=== PATIENT | female | born 1940 | race Caucasian/White ===

== ENCOUNTER → 2016-07-28 07:09 | Day surgery (SDC) | payer MEDICARE, BC ==
[~2016-07-28] VITALS: Ht 203.2 cm; Wt 64.4 kg
[~2016-07-28 07:09] MED LIST: ASPIRIN EC81 M1 PO; CATAPRES0.1 MG PO; CELEXA20 MG PO; PEPCID AC20 MG PO; PRAVACHOL40 MG PO; PRINIVIL20 MG PO; PROLIA INJ 660 MG/M1 IJ; SYNTHROID112 MCG PO; TENORMIN25 MG PO; VITAMIN D250000 UNIT PO; XANAX0.5 MG PO; ZESTORETIC 20-1 EACH PO
[2016-07-28 08:03] LABS: HEMATOCRIT 48.4 % (36.0-48.0); HEMOGLOBIN 16.6 g/dL (12-16); MCH 32.4 pg (26.0-34.0); MCHC 34.3 g/dL (31.0-37.0); MCV 94.3 fL (80.0-100.0); MEAN PLATELET VOLUME 8.9 fL (7.4-10.4); RBC 5.13 10x6/uL (4.00-5.40); RDW 14.6 % (11.5-14.5); WBC 6.8 10x3/uL (4.8-10.8)
[2016-07-28 08:41] LABS: CALC OSMOLALITY 261 mosm/kg (275-300); CALCIUM 8.9 mg/dL (8.5-10.1); CARBON DIOXIDE 30.1 mmol/L (21.0-32.0); CHLORIDE - SERUM 96 mmol/L (98-107); CREATININE - SERUM 0.7 mg/dL (0.6-1.3); GLUCOSE 87 mg/dL (74-106); POTASSIUM - SERUM 3.2 mmol/L (3.5-5.1); SODIUM 132 mmol/L (136-145); UREA NITROGEN 7 mg/dL (7-18); eGFR NON AFRICAN AMERICAN 86 mL/min (90-120)
[2016-07-28 09:13] VITALS: BP 109/53; Ht 203.2 cm; Wt 64.4 kg
--- NOTE | 2016-07-28 10:45 | NUR ---
NO COUNTS OR PREP R/T COLONOSCOPY PROCEDURE
--- NOTE | 2016-07-28 11:15 | NUR ---
GUERO PAD X2 RIGHT THIGH, [id number] EXP05/04/18
--- NOTE | 2016-07-28 12:52 | NUR ---
1245-RECD TO ROOM FROM PACU. ALERT. RESP WITH EASE, COUGHS AT INTERVALS. O2 ON AT 3L PER NC. IV PATENT. TAKING ICE CHIPS.
--- NOTE | 2016-07-28 15:03 | NUR ---
1330-O2 D/C, IV D/C. UP TO BATHROOM TO DRESS. 1345-DISCHARGE INSTRUCTIONS REVIEWED AND D/C VIA WC TO PRIVATE AUTO WITH SPOUSE.
--- NOTE | 2016-08-13 09:40 | OP ---
PATIENT NAME: CARA MCDONOUGH MEDICAL RECORD: [id number] :38 LOCATION:D.OPS ADMISSION DATE: SURGEON: RAPHAEL FLORES MD DATE OF OPERATION: 07/28/2016 PREOPERATIVE DIAGNOSES: History of complex polyps of the hepatic flexure and the cecum, which have been tattooed previously. POSTOPERATIVE DIAGNOSES: 1. Two sites of regrowth of the cecal polypoid tissue at the margins of the tattoo scar. 2. Some regrowth of polypoid tissue in the center of the scar at the hepatic flexure. 3. A new 9 mm scar on a fold. PROCEDURES: 1. Total colonoscopy to the cecum. 2. Polypectomy of the hepatic flexure polyp utilizing the argon plasma fill technician, which is a radiofrequency type of ablation of benign colonic process. 3. Hot biopsy forceps polypectomies times 2. SURGEON: Raphael Flores MD. AEROSPACE ENGINEER: None. BLOOD LOSS: Minimal. ANESTHESIA: General. COMPLICATIONS: None. The risks, possible complications and alternatives to procedure were explained to the patient. She elects to proceed. OPERATIVE COURSE: The patient was conveyed to the operating room electively on 07/28/2016. General anesthesia was induced by anesthesia staff. The patient was placed in the Garnett position. A digital rectal examination was performed. I entered the colonoscope. I noted the anastomosis, which appeared intact and without any polypoid tissue and no evidence of any glandular or neoplastic tissue. I then continued to advance the endoscope. Moderate sigmoid diverticulosis was noted. I advanced the cecum easily. The prep was adequate. I slowly withdrew the endoscope. The cecal polyps were treated each area was treated with the hot biopsy forceps polypectomy technique. I then treated the hepatic flexure polyp by biopsy and then treating it with the argon plasma fill technician utilizing the right colon setting in the pulse mode. I then continued to withdraw the endoscope. Another polyp was removed in its entirety utilizing the hot biopsy forceps polypectomy technique. I then withdrew into the rectum. I then withdrew the endoscope. I will see the patient in my office in 2-3 weeks. I will plan for her next colonoscopy with the argon plasma fill technician to take place in 1 year. TRANSINT:[id number] Voice Confirmation ID: [id number] DOCUMENT ID: [id number] OPERATIVE REPORT [id number] DEMSKCARA Gonsalves, RAPHAEL SEN at 0940 CC: MARZENA MART MD, KATIE LIZARRAGA MD and TROY NATHAN [id number] DICTATION DATE: 07/28/16 1233 ENVIRONMENTAL AIDE: 07/28/162009 [facility] 07/28/[address] [facility] [address] [place] [address]
--- NOTE | 2016-08-13 09:40 | HP ---
PATIENT: CARA MCDONOUGH MEDICAL RECORD: [id number] ACCOUNT: [id number] LOCATION:ABDIRAHMAN : 36 ADMISSION DATE: 07/28/16 HISTORY AND PHYSICAL EXAMINATION CHIEF COMPLAINT: Complex colon polyps. HISTORY OF PRESENT ILLNESS: The patient has a history of complex colon polyps of the hepatic flexure of the cecum. They are complex due to their size and location. The risks, possible complications and alternatives to polypectomy utilizing argon plasma plate stacker were explained to the patient. She elects to proceed. PAST MEDICAL AND SURGICAL HISTORY: Hysterectomy, history of bowel resection, history section, history of colon polyps, history of dyspnea, hypothyroidism, on replacement therapy, depression, history of gastritis, history of colon carcinoma, colon carcinoma with resection by Dr. Silveira, history of arthritis of a finger, hypertension. SOCIAL HISTORY: She is a smoker, I advised her to quit smoking. ALLERGIES: PENICILLIN. MEDICATIONS: Low dose aspirin, atenolol, famotidine, Synthroid, pravastatin, lisinopril/hydrochlorothiazide. REVIEW OF SYSTEMS: Negative for CVA or seizures. Negative for diabetes or hepatitis. PHYSICAL EXAMINATION: GENERAL: The patient does not appear acutely ill. She does not appear chronically ill. The entire physical examination was performed in the presence of a female nurse. HEAD: External ears appear normal. EYES: Extraocular movements are intact. NECK: Trachea is midline. CHEST: No intercostal retractions. PULMONARY: Nonlabored, no stridor. ABDOMEN: Nontender. IMPRESSION: History of complex colon polyps. PLAN: We will be colonoscopy with polypectomy utilizing the argon plasma plate stacker, which is a radiofrequency type of ablation of a benign colonic process. TRANSINT:[id number] Voice Confirmation ID: [id number] DOCUMENT ID: [id number] HISTORY AND PHYSICAL [id number] CARA MCDONOUGH RAPHAEL FLORES MD at 0940 CC: KATIE LIZARRAGA MD and TROY NATHAN MD [id number] DICTATION DATE: 07/28/16 1040 BOILERMAKER FITTER: 07/28/16 1155 [facility] 07/28/16 [facility] [address] [place] [address]
== END | disposition home or self-care (01) ==
LOC: D.OPS 07:09 → D.PAN 09:00 → D.OPS 09:15 → D.PAN 09:45
PROVIDERS: Anesthesiology
DX: D12.0 Benign neoplasm of cecum (principal); D12.3 Benign neoplasm of transverse colon; Z86.010 Personal history of colon polyps; E03.9 Hypothyroidism, unspecified; I10 Essential (primary) hypertension; F32.9 Major depressive disorder, single episode, unspecified; Z85.038 Personal history of other malignant neoplasm of large intestine; F17.200 Nicotine dependence, unspecified, uncomplicated; Z79.82 Long term (current) use of aspirin; Z79.899 Other long term (current) drug therapy; Z88.0 Allergy status to penicillin

== ENCOUNTER 2017-09-08 07:21 | Day surgery (SDC) | payer MEDICARE, BC ==
[~2017-09-08] VITALS: Ht 157.5 cm; Wt 65.3 kg
--- NOTE | ~2017-09-08 | OP ---
PATIENT NAME: CARA MCDONOUGH MEDICAL RECORD: [id number] :36 LOCATION:D.OPS ADMISSION DATE: SURGEON: RAPHAEL FLORES MD DATE OF OPERATION: 09/08/2017 PREOPERATIVE DIAGNOSES: History of cecal tubular adenoma as well as a colon polyp at 70 cm, which was also a tubular adenoma. POSTOPERATIVE DIAGNOSES: History of cecal tubular adenoma as well as a colon polyp at 70 cm, which was also a tubular adenoma without evidence of regrowth of either polyp. PROCEDURES: 1. Total colonoscopy to cecum. 2. Biopsies of the scar at 70 cm with retreatment utilizing the argon plasma forming mill operator. SURGEON: Raphael Flores MD SPECIAL MAKEUP FX ARTIST INSTRUCTOR: None. BLOOD LOSS: Minimal. ANESTHESIA: General. COMPLICATIONS: None. The risks, possible complications, and alternatives to the procedure were explained to the patient. She elects to proceed. OPERATIVE COURSE: The patient was conveyed to the operating room electively on 09/08/2017. General anesthesia was induced by the anesthesia staff. The patient was placed in the Garnett position. A digital rectal examination was performed. A colonoscope was inserted through the anus. It was easily advanced to the cecum. The prep was poor. I slowly withdrew the endoscope. I dragged the folds. I irrigated and aspirated extensively. The pullback was greater than a 20-minute pullback. I identified no residual or recurrent cecal polyp. I did identify a scar next to a tattoo in the transverse colon. This was biopsied utilizing the cold endoscopic biopsy forceps and then I ablated the tissue with the argon plasma forming mill operator. The scope was then slowly withdrawn. I utilized normal imaging as well as narrow band imaging. A retroflexed view was obtained in the rectum. I then unretroflexed the scope and removed it under direct vision. I will see the patient in my office in 2-3 weeks. It is very likely that I will return the patient's endoscopic care back over to Dr. Starr at that time. TRANSINT:[id number] Voice Confirmation ID: [id number] DOCUMENT ID: [id number] OPERATIVE REPORT [id number] CARA MCDONOUGH RAPHAEL FLORES MD at 1741 CC: KATIE STARR and TROY NATHAN MD [id number] DICTATION DATE: 09/08/17 1257 PRODUCTION STATISTICAL CLERK: 09/08/17 1346 [facility] 09/08/17 [place] [id number] [place] [id number]
[2017-09-08 08:35] VITALS: BP 105/53; Ht 157.5 cm; Wt 65.3 kg
[2017-09-08 08:49] LABS: HEMATOCRIT 45.4 % (36.0-48.0); MCH 32.5 pg (26.0-34.0); MCHC 35.2 g/dL (31.0-37.0); MCV 92.3 fL (80.0-100.0); MEAN PLATELET VOLUME 8.7 fL (7.4-10.4); RBC 4.92 10x6/uL (4.00-5.40); RDW 14.6 % (11.5-14.5); WBC 5.8 10x3/uL (4.8-10.8)
[2017-09-08 09:03] LABS: CALC OSMOLALITY 270 mosm/kg (275-300); CALCIUM 8.8 mg/dL (8.5-10.1); CARBON DIOXIDE 27.1 mmol/L (21.0-32.0); CHLORIDE - SERUM 96 mmol/L (98-107); CREATININE - SERUM 0.6 mg/dL (0.6-1.3); GLUCOSE 92 mg/dL (74-106); POTASSIUM - SERUM 3.1 mmol/L (3.5-5.1); SODIUM 136 mmol/L (136-145); UREA NITROGEN 9 mg/dL (7-18); eGFR NON AFRICAN AMERICAN > 90 mL/min (90-120)
== END 2017-09-08 14:54 | disposition home or self-care (01) ==
LOC: D.OPS 07:21 → D.PAN 10:00 → D.OPS 10:00
PROVIDERS: Anesthesiology
DX: K52.9 Noninfective gastroenteritis and colitis, unspecified (principal); Z01.812 Encounter for preprocedural laboratory examination; Z86.010 Personal history of colon polyps

== ENCOUNTER 2018-02-18 09:06 | Inpatient (IN) | payer MEDICARE, BC ==
[~2018-02-18] VITALS: Ht 157.5 cm; Wt 72.3 kg
--- NOTE | ~2018-02-18 | MORECARE ---
CASE MANAGEMENT DISCHARGE SUMMARY PATIENT: CARA MCDONOUGH UNIT: [id number] ADM DATE: 02/18/18 AGE: 77 : 38 SEX: F ROOM/BED: D.2301 AUTHOR: SHAHNAZ,DOC PHYSICIAN: REFERRING PHYSICIAN: ERI LIMON MD DATE OF SERVICE: 02/24/18 Discharge Plan Patient Name: CARA MCDONOUGH Facility: [facility]:[place] : 1940 Planned Disposition: Home Anticipated Discharge Date: Discharge Date: 02/24/2018 Expected LOS: Initial Reviewer: [id number] Initial Review Date: 02/18/2018 Generated: 02/24/18 8:41 pm Comments DCP- Discharge Planning Updated by [email or web address]: Myla Mcclure on 02/24/18 6:[address] CM notified this am that patient was needing Home 02 and will be discharged today. Walk test completed and records faxed to [facility]. DME will bring [address] Leung stated that patient doesn't need Home Health services at this time. Patient will be followed by House calls upon discharge. CM will continue to follow and assist with discharge planning / needs. Appended by Myla Mcclure on 02/24/2018 19:37 CDT: IMM EXPALINED AND SERVED @1235 DCP- Discharge Planning Updated by [email or web address]: Myla Mcclure on 02/23/18 3:[address] CM received order for planned disposition. CM met with patient she is refusing inpatient rehab. Patient will agree to Home Health upon discharge. MARSHA signed for [facility]. CM called [facility] to check for availability. CM left message for Anna Worrell. CM awaiting response from agency. CM will continue to follow and assist as needed with discharge planning / needs. DCP- Discharge Planning Updated by [email or web address]: Shima Mccord on 02/21/18 1:[address] Patient Name: CARA MCDONOUGH Admission Status: ER Accout number: [id number] Admission Date: 02-18-2018 : 1940 Admission Diagnosis:OTHER AND UNSP VENTRAL HERNIA WITH OBSTRUCTION, W/O ZITA Attending: ERI LIMON Current LOS: 3 Anticipated DC Date: Planned Disposition: Home Primary Insurance: MEDICARE A & B Discharge Planning Comments: CM met with patient to assess discharge planning needs. Patient stated that she is independent with her care at home. Her will be the one to drive her home. She has a cane, walker, shower chair, and nebulizer at home. She denies any needs, but is open to home health if needed. There are 2 steps in her home. CM will continue to follow and assist with dc planning. Bulk Tank Car Unloader: Shima Mccord DCPIA - Discharge Planning Initial Assessment Updated by [email or web address]: Shima Mccord on 02/21/18 2:27 pm * Is the patient Alert and Oriented? Yes * How many steps to enter\exit or inside your home? * PCP [facility] * Pharmacy [facility] * Preadmission Environment Home with Family * ADLs Independent * Equipment Cane Nebulizer Rolling Walker Shower Chair * List name and contact numbers for known caregivers / representatives who currently or will assist patient after discharge: ALEX (SPOUSE) [phone] * Verbal permission to speak to the caregivers and representatives has been obtained from the patient. N/A * Community resources currently utilized None * Additional services required to return to the preadmission environment? No * Can the patient safely return to the preadmission environment? Yes * Has this patient been hospitalized within the prior 30 days at any hospital? No Coverage Notice Reviewer: [email or web address] - Myla Mcclure Notice Issued Date-Time: 02/24/2018 12:35 Notice Type: IM Discharge Notice Notice Delivered To: Patient Relationship to Patient: Self Combination Building Inspector Name: Delivery Method: HAND - Hand Delivered Imani Days: Prior Verbal Notification: Recipient Understood Notice: Yes Recipient Signature: Yes Med Rec Note Co-signed by Attending: Coverage Notice Comment: Last DP export: 02/24/18 12:46 Patient Name: CARA MCDONOUGH Page 54093 at 1941 All edits/amendments must be made on the electronic document DICTATION DATE: 02/24/181939 WIREWORKER: CALLIE 02/24/181939 RPT#: [id number] DC DATE:02/24/18 STATUS: DIS IN [facility] [address] [place] [address] END OF REPORT
--- NOTE | ~2018-02-18 | MORECARE ---
CASE MANAGEMENT DISCHARGE SUMMARY PATIENT: CARA MCDONOUGH UNIT: [id number] ADM DATE: 02/18/18 AGE: 77 : 38 SEX: F ROOM/BED: D.2301 AUTHOR: BRANDIE CHRISTIE PHYSICIAN: REFERRING PHYSICIAN: ERI LIMON MD DATE OF SERVICE: 02/24/18 Discharge Plan Patient Name: CARA MCDONOUGH Facility: [facility]:[place] : 1940 Planned Disposition: Home Anticipated Discharge Date: Discharge Date: Expected LOS: Initial Reviewer: [email or web address] Initial Review Date: 02/18/2018 Generated: 02/24/18 2:30 pm Comments DCP- Discharge Planning Updated by [email or web address]: Myla Mcclure on 02/23/18 3:[address] CM received order for planned disposition. CM met with patient she is refusing inpatient rehab. Patient will agree to Home Health upon discharge. MARSHA signed for [facility]. CM called [facility] to check for availability. CM left message for Anna Worrell. CM awaiting response from agency. CM will continue to follow and assist as needed with discharge planning / needs. DCP- Discharge Planning Updated by [email or web address]: Shima Mccord on 02/21/18 1:[address] Patient Name: CARA MCDONOUGH Admission Status: ER Accout number: [id number] Admission Date: 02-18-2018 : 1940 Admission Diagnosis:OTHER AND UNSP VENTRAL HERNIA WITH OBSTRUCTION, W/O ZITA Attending: ERI LIMON Current LOS: 3 Anticipated DC Date: Planned Disposition: Home Primary Insurance: MEDICARE A & B Discharge Planning Comments: CM met with patient to assess discharge planning needs. Patient stated that she is independent with her care at home. Her will be the one to drive her home. She has a cane, walker, shower chair, and nebulizer at home. She denies any needs, but is open to home health if needed. There are 2 steps in her home. CM will continue to follow and assist with dc planning. Junior Loan Processor: Shima Mccord DCPIA - Discharge Planning Initial Assessment Updated by [email or web address]: Shima Mccord on 02/21/18 2:27 pm * Is the patient Alert and Oriented? Yes * How many steps to enter\exit or inside your home? * PCP [facility] * Pharmacy [facility] * Preadmission Environment Home with Family * ADLs Independent * Equipment Cane Nebulizer Rolling Walker Shower Chair * List name and contact numbers for known caregivers / representatives who currently or will assist patient after discharge: ALEX (SPOUSE) [phone] * Verbal permission to speak to the caregivers and representatives has been obtained from the patient. N/A * Community resources currently utilized None * Additional services required to return to the preadmission environment? No * Can the patient safely return to the preadmission environment? Yes * Has this patient been hospitalized within the prior 30 days at any hospital? No External Providers External Provider: OTHER-OTHER Next Contact Date: Service Request Date: Service Type: Resolution: Reviewer: Comments: Last DP export: 02/23/18 3:48 Patient Name: CARA MCDONOUGH Page [id number] at 1330 All edits/amendments must be made on the electronic document DICTATION DATE: 02/24/18 132 SOFT WATER MECHANIC: CALLIE 02/24/18 1329 RPT#: [id number] DC DATE: STATUS: ADM IN [facility] [address] [place] [address] END OF REPORT
--- NOTE | ~2018-02-18 | MORECARE ---
CASE MANAGEMENT DISCHARGE SUMMARY PATIENT: CARA MCDONOUGH UNIT: [id number] ADM DATE: 02/18/18 AGE: 77 : 38 SEX: F ROOM/BED: D.2301 AUTHOR: BRANDIE CHRISTIE PHYSICIAN: REFERRING PHYSICIAN: ERI LIMON MD DATE OF SERVICE: 02/24/18 Discharge Plan Patient Name: CARA MCDONOUGH Facility: [facility]:[place] : 1940 Planned Disposition: Home Anticipated Discharge Date: Discharge Date: Expected LOS: Initial Reviewer: [email or web address] Initial Review Date: 02/18/2018 Generated: 02/24/18 2:45 pm Comments DCP- Discharge Planning Updated by [email or web address]: Myla Mcclure on 02/24/18 12:[address] CM notified this am that patient was needing Home 02 and will be discharged today. Walk test completed and records faxed to [facility]. DME will bring [address] Leung stated that patient doesn't need Home Health services at this time. Patient will be followed by House calls upon discharge. CM will continue to follow and assist with discharge planning / needs. DCP- Discharge Planning Updated by [email or web address]: Myla Mcclure on 02/23/18 3:[address] CM received order for planned disposition. CM met with patient she is refusing inpatient rehab. Patient will agree to Home Health upon discharge. MARSHA signed for [facility]. CM called [facility] to check for availability. CM left message for Anna Worrell. CM awaiting response from agency. CM will continue to follow and assist as needed with discharge planning / needs. DCP- Discharge Planning Updated by [email or web address]: Shima Mccord on 02/21/18 1:[address] Patient Name: CARA MCDONOUGH Admission Status: ER Accout number: [id number] Admission Date: 02-18-2018 : 1940 Admission Diagnosis:OTHER AND UNSP VENTRAL HERNIA WITH OBSTRUCTION, W/O ZITA Attending: ERI LIMON Current LOS: 3 Anticipated DC Date: Planned Disposition: Home Primary Insurance: MEDICARE A & B Discharge Planning Comments: CM met with patient to assess discharge planning needs. Patient stated that she is independent with her care at home. Her will be the one to drive her home. She has a cane, walker, shower chair, and nebulizer at home. She denies any needs, but is open to home health if needed. There are 2 steps in her home. CM will continue to follow and assist with dc planning. Lining Mechanic: Shima Mccord DCPIA - Discharge Planning Initial Assessment Updated by [email or web address]: Shima Mccord on 02/21/18 2:27 pm * Is the patient Alert and Oriented? Yes * How many steps to enter\exit or inside your home? * PCP [facility] * [facility]acy [facility] * Preadmission Environment Home with Family * ADLs Independent * Equipment Cane Nebulizer Rolling Walker Shower Chair * List name and contact numbers for known caregivers / representatives who currently or will assist patient after discharge: ALEX (SPOUSE) [phone] * Verbal permission to speak to the caregivers and representatives has been obtained from the patient. N/A * Community resources currently utilized None * Additional services required to return to the preadmission environment? No * Can the patient safely return to the preadmission environment? Yes * Has this patient been hospitalized within the prior 30 days at any hospital? No Last DP export: 02/24/18 12:30 Patient Name: CARA MCDONOUGH Page 59190 at 1346 All edits/amendments must be made on the electronic document DICTATION DATE: 02/24/181344 RETAIL MANAGEMENT TRAINEE: CALLIE 02/24/181344 RPT#: [id number] DC DATE: STATUS: ADM IN [facility] [address] [place] [address] END OF REPORT
--- NOTE | ~2018-02-18 | OP ---
PATIENT NAME: CARA MCDONOUGH MEDICAL RECORD: [id number] :36 LOCATION:[facility] D.2301 ADMISSION DATE:02/18/18 SURGEON: DASIA GUZMAN MD DATE OF OPERATION: 02/22/2018 SURGEON: Dasia Guzman MD PREOPERATIVE DIAGNOSES: 1. Incarcerated incisional hernia. 2. Small-bowel obstruction. 3. Significant intra-abdominal adhesions. POSTOPERATIVE DIAGNOSES: 1. Incarcerated incisional hernia. 2. Small-bowel obstruction. 3. Significant intra-abdominal adhesions. PROCEDURES PERFORMED: Laparoscopic lysis of adhesions, laparoscopic reduction of incarcerated incisional hernia, Laparoscopic incarcerated incisional hernia repair with mesh. ANESTHESIA: General. COMPLICATIONS: None. SPECIMENS: None. Case was clean. ESTIMATED BLOOD LOSS: 50 cc. OPERATIVE COURSE: After consent was obtained, the patient was taken to the operating room and placed in the supine position on the operating table. Next, general anesthesia was given. A timeout was then taken to confirm the correct patient and procedure. The abdomen was prepped and draped in typical sterile fashion and Ioban dressing was placed. Local anesthetic was used in the left upper quadrant at Griffin's point. A stab incision was made with 11-blade scalpel. Using a 5-mm bladeless optical trocar, the abdomen was entered under direct laparoscopic vision. Adequate pneumoperitoneum was achieved. The abdominal cavity was inspected. No evidence of bowel injury. No evidence of bleeding. There were loops of bowel densely adherent to the anterior abdominal wall with a loop of small bowel protruding through the incisional hernia defect from the patient's previous low anterior resection. The patient had a lower midline abdominal incision with incarcerated hernia that corresponded to CT findings on admission with a loop of small bowel within the incarcerated hernia. At this time, two additional trocars were placed, an 11-mm trocar in the left lateral quadrant, 5-mm trocar into the left lower quadrant under direct laparoscopic vision. At this time, extensive and meticulous lysis of adhesion was performed using sharp scissor dissection. The bowel was gently retracted and adhesions were sharply dissected off the anterior abdominal wall until all the small bowel was freed from the anterior abdominal wall. The hernia was reduced. At this time, the abdomen was copiously OPERATIVE REPORT [id number] CARA MCDONOUGH irrigated and suctioned. The small bowel was run from the ligament of Treitz to the terminal ileum performing small bowel laparoscopic lysis of adhesions. This was repeated a second time again with copious abdominal washout and irrigation. There was fluid noted be running distal to the area of earlier bowel obstruction. There was some erythematous serosa but no serosal defects were noted. There was no perforation of the bowel noted. At this time we started to perform hernia repair. A 4-1/[address] mesh was placed into the abdomen using a Matt-Uday, the Echo position system was used to position the mesh from the anterior abdominal wall across the defect with a minimum of 5 cm overlap in all directions. The mesh was secured to the abdominal wall using the OptiFix tacker. Again, at this time, the abdomen was copiously irrigated and suctioned. There was no evidence of bowel injury. No evidence of succuss. Small bowel again was run from ligament of Treitz to terminal ileum with no bowel injuries identified. A RANI drain was placed into the pelvis through the left lower quadrant trocar. At this time, all remaining instruments were removed. The abdomen was desufflated. Skin incisions were closed with 4-0 Monocryl, Mastisol, and Steri-Strips. The RANI drain was secured in place with a 3-0 nylon suture. At the end of the case, all needle and instrument counts were correct. No complications occurred. The patient was extubated and transferred to the PACU in stable condition. TRANSINT:[id number] Voice Confirmation ID: [id number] DOCUMENT ID: [id number] DASIA GUZMAN MD at 0829 CC: [id number] DICTATION DATE: 02/22/182000 PHARMACOLOGY ASSOCIATE: 02/22/182114 ADM IN [facility] [address] [place] [address]
--- NOTE | ~2018-02-18 | MORECARE ---
CASE MANAGEMENT DISCHARGE SUMMARY PATIENT: CARA MCDONOUGH UNIT: [id number] ADM DATE: 02/18/18 AGE: 77 : 36 SEX: F ROOM/BED: D.2301 AUTHOR: SHAHNAZ,DOC PHYSICIAN: REFERRING PHYSICIAN: ERI LIMON MD DATE OF SERVICE: 02/27/18 Discharge Plan Patient Name: CARA MCDONOUGH Facility: [facility]:[place] : 1940 Planned Disposition: Home Anticipated Discharge Date: Discharge Date: 02/24/2018 Expected LOS: Initial Reviewer: [email or web address] Initial Review Date: 02/18/2018 Generated: 02/27/18 10:21 am Comments DCP- Discharge Planning Updated by [email or web address]: Myla Mcclure on 02/24/18 6:[address] CM notified this am that patient was needing Home 02 and will be discharged today. Walk test completed and records faxed to [facility]. DME will bring [address] Leung stated that patient doesn't need Home Health services at this time. Patient will be followed by House calls upon discharge. CM will continue to follow and assist with discharge planning / needs. Appended by Myla Mcclure on 02/24/2018 19:37 CDT: IMM EXPALINED AND SERVED @1235 DCP- Discharge Planning Updated by [email or web address]: Myla Mcclure on 02/23/18 3:[address] CM received order for planned disposition. CM met with patient she is refusing inpatient rehab. Patient will agree to Home Health upon discharge. MARSHA signed for [facility]. CM called [facility] to check for availability. CM left message for Anna Worrell. CM awaiting response from agency. CM will continue to follow and assist as needed with discharge planning / needs. DCP- Discharge Planning Updated by [email or web address]: Shima Mccord on 02/21/18 1:[address] Patient Name: CARA MCDONOUGH Admission Status: ER Accout number: [id number] Admission Date: 02-18-2018 : 1940 Admission Diagnosis:OTHER AND UNSP VENTRAL HERNIA WITH OBSTRUCTION, W/O ZITA Attending: ERI LIMON Current LOS: 3 Anticipated DC Date: Planned Disposition: Home Primary Insurance: MEDICARE A & B Discharge Planning Comments: CM met with patient to assess discharge planning needs. Patient stated that she is independent with her care at home. Her will be the one to drive her home. She has a cane, walker, shower chair, and nebulizer at home. She denies any needs, but is open to home health if needed. There are 2 steps in her home. CM will continue to follow and assist with dc planning. Teacher Industrial [employer]: Shima Mccord DCPIA - Discharge Planning Initial Assessment Updated by [email or web address]: Shima Mccord on 02/21/18 2:27 pm * Is the patient Alert and Oriented? Yes * How many steps to enter\exit or inside your home? * PCP [facility] * Pharmacy [facility] * Preadmission Environment Home with Family * ADLs Independent * Equipment Cane Nebulizer Rolling Walker Shower Chair * List name and contact numbers for known caregivers / representatives who currently or will assist patient after discharge: ALEX (SPOUSE) [phone] * Verbal permission to speak to the caregivers and representatives has been obtained from the patient. N/A * Community resources currently utilized None * Additional services required to return to the preadmission environment? No * Can the patient safely return to the preadmission environment? Yes * Has this patient been hospitalized within the prior 30 days at any hospital? No Coverage Notice Reviewer: [id number] - Myla Mcclure Notice Issued Date-Time: 02/24/2018 12:35 Notice Type: IM Discharge Notice Notice Delivered To: Patient Relationship to Patient: Self Service Desk Technician Name: Delivery Method: HAND - Hand Delivered Imani Days: Prior Verbal Notification: Recipient Understood Notice: Yes Recipient Signature: Yes Med Rec Note Co-signed by Attending: Coverage Notice Comment: Last DP export: 02/24/18 6:41 Patient Name: CARA MCDONOUGH Page [id number] at 0921 All edits/amendments must be made on the electronic document DICTATION DATE: 02/27/18920 [employer] AGENT: CALLIE 02/27/18920 RPT#: [id number] DC DATE:02/24/18 STATUS: DIS IN [facility] [address] [place] [address] END OF REPORT
[2018-02-18 09:58] LABS: BASOPHILS 0.1 % (0-2); EOSINOPHILS 0.1 % (0-7); HEMATOCRIT 45.7 % (36.0-48.0); HEMOGLOBIN 16.4 g/dL (12-16); IMMATURE GRANULOCYTES 0.5 % (0-5); LYMPHOCYTES 6.9 % (15-50); MCH 33.2 pg (26.0-34.0); MCHC 35.9 g/dL (31.0-37.0); MCV 92.5 fL (80.0-100.0); MEAN PLATELET VOLUME 8.7 fL (7.4-10.4); MONOCYTES 3.2 % (2-11); NEUTROPHILS 89.2 % (40-80); PLATELET COUNT 296 10x3/uL (130-400); RBC 4.94 10x6/uL (4.00-5.40); WBC 14.6 10x3/uL (4.8-10.8)
[2018-02-18 10:46] LABS: ALBUMIN 3.1 g/dL (3.4-5.0); ALKALINE PHOSPHATASE 43 U/L (46-116); ALT (SGPT) 11 U/L (10-68); BILIRUBIN - TOTAL 0.61 mg/dL (0.2-1.3); CALC OSMOLALITY 264 mosm/kg (275-300); CALCIUM 7.8 mg/dL (8.5-10.1); CHLORIDE - SERUM 96 mmol/L (98-107); CREATININE - SERUM 0.7 mg/dL (0.6-1.3); GLUCOSE 102 mg/dL (74-106); LIPASE 76 U/L (73-393); POTASSIUM - SERUM 2.9 mmol/L (3.5-5.1); PROTEIN - SERUM 6.1 g/dL (6.4-8.2); SODIUM 133 mmol/L (136-145); UREA NITROGEN 10 mg/dL (7-18); eGFR NON AFRICAN AMERICAN 85 mL/min (90-120)
[2018-02-18 12:19] LABS: APPEARANCE CLEAR (CLEAR); BILIRUBIN NEGATIVE (NEGATIVE); COLOR YELLOW (YELLOW); GLUCOSE NEGATIVE (NEGATIVE); KETONE NEGATIVE (NEGATIVE); NITRITE NEGATIVE (NEGATIVE); PROTEIN NEGATIVE (NEGATIVE); RED CELLS - URINE RARE /hpf (0-5); UROBILINOGEN NORMAL (NORMAL); WHITE CELLS - URINE RARE /hpf (0-5)
[2018-02-18 12:20] LABS: EPITHELIAL CELLS OCC /hpf (0-5)
[2018-02-18 13:11] VITALS: BP 102/48
[2018-02-18 14:13] VITALS: BP 120/46
[2018-02-18 18:35] VITALS: BMI 28.7
[2018-02-18 19:58] VITALS: BP 107/59
[2018-02-19 04:00] VITALS: BP 120/52
[2018-02-19 05:47] LABS: ALBUMIN 2.7 g/dL (3.4-5.0); ALKALINE PHOSPHATASE 39 U/L (46-116); BILIRUBIN - TOTAL 0.76 mg/dL (0.2-1.3); CALC OSMOLALITY 270 mosm/kg (275-300); CALCIUM 7.8 mg/dL (8.5-10.1); CARBON DIOXIDE 31.9 mmol/L (21.0-32.0); CHLORIDE - SERUM 99 mmol/L (98-107); CREATININE - SERUM 0.7 mg/dL (0.6-1.3); GLUCOSE 95 mg/dL (74-106); MAGNESIUM - SERUM 1.5 mg/dL (1.8-2.4); PROTEIN - SERUM 5.7 g/dL (6.4-8.2); SODIUM 136 mmol/L (136-145); UREA NITROGEN 9 mg/dL (7-18); eGFR NON AFRICAN AMERICAN 85 mL/min (90-120)
[2018-02-19 05:48] LABS: ALT (SGPT) 8 U/L (10-68); POTASSIUM - SERUM 3.6 mmol/L (3.5-5.1)
[2018-02-19 05:51] LABS: BASOPHILS 0.1 % (0-2); EOSINOPHILS 0.1 % (0-7); HEMATOCRIT 45.7 % (36.0-48.0); HEMOGLOBIN 15.7 g/dL (12-16); IMMATURE GRANULOCYTES 0.2 % (0-5); LYMPHOCYTES 4.4 % (15-50); MCH 32.4 pg (26.0-34.0); MCHC 34.4 g/dL (31.0-37.0); MCV 94.2 fL (80.0-100.0); MEAN PLATELET VOLUME 9.1 fL (7.4-10.4); MONOCYTES 10.9 % (2-11); NEUTROPHILS 84.3 % (40-80); PLATELET COUNT 308 10x3/uL (130-400); RBC 4.85 10x6/uL (4.00-5.40); RDW 14.2 % (11.5-14.5); WBC 11.3 10x3/uL (4.8-10.8)
[2018-02-19 08:30] VITALS: BP 97/47
[2018-02-19 14:02] VITALS: BP 102/56
[2018-02-19 18:10] VITALS: BP 120/56
[2018-02-19 20:22] VITALS: BP 99/41
[2018-02-20 05:17] VITALS: BP 114/63
[2018-02-20 05:30] LABS: BASOPHILS 0.1 % (0-2); EOSINOPHILS 0.1 % (0-7); HEMATOCRIT 44.9 % (36.0-48.0); HEMOGLOBIN 15.2 g/dL (12-16); IMMATURE GRANULOCYTES 0.3 % (0-5); LYMPHOCYTES 8.9 % (15-50); MCH 32.7 pg (26.0-34.0); MCHC 33.9 g/dL (31.0-37.0); MEAN PLATELET VOLUME 9.1 fL (7.4-10.4); MONOCYTES 8.2 % (2-11); NEUTROPHILS 82.4 % (40-80); PLATELET COUNT 318 10x3/uL (130-400); RBC 4.65 10x6/uL (4.00-5.40); RDW 14.7 % (11.5-14.5); WBC 9.8 10x3/uL (4.8-10.8)
[2018-02-20 05:33] LABS: MCV 96.6 fL (80.0-100.0)
[2018-02-20 05:53] LABS: ALBUMIN 2.9 g/dL (3.4-5.0); ALKALINE PHOSPHATASE 41 U/L (46-116); BILIRUBIN - TOTAL 0.81 mg/dL (0.2-1.3); CALCIUM 7.4 mg/dL (8.5-10.1); CARBON DIOXIDE 29.2 mmol/L (21.0-32.0); CHLORIDE - SERUM 100 mmol/L (98-107); CREATININE - SERUM 0.7 mg/dL (0.6-1.3); GLUCOSE 108 mg/dL (74-106); POTASSIUM - SERUM 3.5 mmol/L (3.5-5.1); PROTEIN - SERUM 6.1 g/dL (6.4-8.2); SODIUM 136 mmol/L (136-145); eGFR NON AFRICAN AMERICAN 85 mL/min (90-120)
[2018-02-20 05:55] LABS: ALT (SGPT) 12 U/L (10-68); CALC OSMOLALITY 272 mosm/kg (275-300); MAGNESIUM - SERUM 1.9 mg/dL (1.8-2.4); UREA NITROGEN 12 mg/dL (7-18)
[2018-02-20 08:16] VITALS: BP 109/65
[2018-02-20 12:16] VITALS: Ht 157.5 cm; Wt 72.3 kg
[2018-02-20 12:33] VITALS: BP 115/56
[2018-02-20 16:32] VITALS: BP 112/62
[2018-02-20 20:59] VITALS: BP 114/64
[2018-02-21 04:37] LABS: BASOPHILS 0.1 % (0-2); EOSINOPHILS 0.1 % (0-7); HEMATOCRIT 47.4 % (36.0-48.0); HEMOGLOBIN 15.9 g/dL (12-16); IMMATURE GRANULOCYTES 0.3 % (0-5); LYMPHOCYTES 6.9 % (15-50); MCH 32.6 pg (26.0-34.0); MCHC 33.5 g/dL (31.0-37.0); MCV 97.3 fL (80.0-100.0); MEAN PLATELET VOLUME 9.1 fL (7.4-10.4); NEUTROPHILS 76.6 % (40-80); PLATELET COUNT 307 10x3/uL (130-400); RBC 4.87 10x6/uL (4.00-5.40); RDW 14.5 % (11.5-14.5); WBC 9.4 10x3/uL (4.8-10.8)
[2018-02-21 04:53] LABS: ALBUMIN 3.1 g/dL (3.4-5.0); ANION GAP 11.3 mmol/L (8-16); BILIRUBIN - TOTAL 0.66 mg/dL (0.2-1.3); CARBON DIOXIDE 30.6 mmol/L (21.0-32.0); POTASSIUM - SERUM 3.9 mmol/L (3.5-5.1); PROTEIN - SERUM 6.9 g/dL (6.4-8.2)
[2018-02-21 04:54] LABS: CREATININE - SERUM 0.9 mg/dL (0.6-1.3); MAGNESIUM - SERUM 2.6 mg/dL (1.8-2.4)
[2018-02-21 05:31] VITALS: BP 115/63
[2018-02-21 08:08] VITALS: BP 138/74
[2018-02-21 12:04] VITALS: BP 171/63
[2018-02-21 20:06] VITALS: BP 134/64
[2018-02-22 05:49] VITALS: BP 127/69
[2018-02-22 06:10] LABS: BASOPHILS 0.1 % (0-2); EOSINOPHILS 0.2 % (0-7); HEMATOCRIT 41.5 % (36.0-48.0); HEMOGLOBIN 13.6 g/dL (12-16); IMMATURE GRANULOCYTES 0.5 % (0-5); LYMPHOCYTES 12.3 % (15-50); MCH 31.9 pg (26.0-34.0); MCHC 32.8 g/dL (31.0-37.0); MCV 97.4 fL (80.0-100.0); MEAN PLATELET VOLUME 9.5 fL (7.4-10.4); MONOCYTES 8.8 % (2-11); NEUTROPHILS 78.1 % (40-80); PLATELET COUNT 304 10x3/uL (130-400); RBC 4.26 10x6/uL (4.00-5.40); RDW 14.8 % (11.5-14.5)
[2018-02-22 06:26] LABS: ALBUMIN 2.6 g/dL (3.4-5.0); ALKALINE PHOSPHATASE 43 U/L (46-116); ALT (SGPT) 21 U/L (10-68); BILIRUBIN - TOTAL 0.77 mg/dL (0.2-1.3); CALC OSMOLALITY 280 mosm/kg (275-300); CALCIUM 7.7 mg/dL (8.5-10.1); CARBON DIOXIDE 33.1 mmol/L (21.0-32.0); CHLORIDE - SERUM 101 mmol/L (98-107); CREATININE - SERUM 0.7 mg/dL (0.6-1.3); GLUCOSE 91 mg/dL (74-106); MAGNESIUM - SERUM 2.3 mg/dL (1.8-2.4); PROTEIN - SERUM 5.9 g/dL (6.4-8.2); SODIUM 139 mmol/L (136-145); UREA NITROGEN 20 mg/dL (7-18); eGFR NON AFRICAN AMERICAN 85 mL/min (90-120)
[2018-02-22 06:27] LABS: POTASSIUM - SERUM 3.1 mmol/L (3.5-5.1)
[2018-02-22 08:20] VITALS: BP 140/68
[2018-02-22 17:06] VITALS: BP 147/70
[2018-02-23] VITALS (24 sets, daily range): BP systolic 108–203; BP diastolic 59–128
[2018-02-23 05:07] LABS: BASOPHILS 0.1 % (0-2); EOSINOPHILS 0 % (0-7); HEMOGLOBIN 14.8 g/dL (12-16); MCH 32.2 pg (26.0-34.0); MCHC 33.6 g/dL (31.0-37.0); MCV 95.9 fL (80.0-100.0); MEAN PLATELET VOLUME 9.3 fL (7.4-10.4); MONOCYTES 2.1 % (2-11); NEUTROPHILS 91.8 % (40-80); PLATELET COUNT 339 10x3/uL (130-400); RBC 4.59 10x6/uL (4.00-5.40); RDW 14.9 % (11.5-14.5); WBC 11.1 10x3/uL (4.8-10.8)
[2018-02-23 05:26] LABS: ALBUMIN 2.7 g/dL (3.4-5.0); ALKALINE PHOSPHATASE 41 U/L (46-116); ALT (SGPT) 20 U/L (10-68); BILIRUBIN - TOTAL 0.63 mg/dL (0.2-1.3); CALC OSMOLALITY 278 mosm/kg (275-300); CALCIUM 7.6 mg/dL (8.5-10.1); CARBON DIOXIDE 30.3 mmol/L (21.0-32.0); CHLORIDE - SERUM 100 mmol/L (98-107); CREATININE - SERUM 0.6 mg/dL (0.6-1.3); GLUCOSE 110 mg/dL (74-106); MAGNESIUM - SERUM 2.2 mg/dL (1.8-2.4); PROTEIN - SERUM 5.9 g/dL (6.4-8.2); SODIUM 138 mmol/L (136-145); UREA NITROGEN 18 mg/dL (7-18); eGFR NON AFRICAN AMERICAN > 90 mL/min (90-120)
[2018-02-23 05:27] LABS: POTASSIUM - SERUM 3.6 mmol/L (3.5-5.1)
[2018-02-24] VITALS (11 sets, daily range): BP systolic 124–160; BP diastolic 60–95
[2018-02-24 03:49] LABS: BASOPHILS 0.1 % (0-2); EOSINOPHILS 0 % (0-7); HEMATOCRIT 44.6 % (36.0-48.0); HEMOGLOBIN 15.1 g/dL (12-16); IMMATURE GRANULOCYTES 1.5 % (0-5); LYMPHOCYTES 11.5 % (15-50); MCH 32.5 pg (26.0-34.0); MCHC 33.9 g/dL (31.0-37.0); MCV 96.1 fL (80.0-100.0); MONOCYTES 3.4 % (2-11); NEUTROPHILS 83.5 % (40-80); PLATELET COUNT 312 10x3/uL (130-400); RBC 4.64 10x6/uL (4.00-5.40); WBC 13.7 10x3/uL (4.8-10.8)
[2018-02-24 04:00] LABS: CALC OSMOLALITY 274 mosm/kg (275-300); CARBON DIOXIDE 35.6 mmol/L (21.0-32.0); CHLORIDE - SERUM 96 mmol/L (98-107); CREATININE - SERUM 0.7 mg/dL (0.6-1.3); GLUCOSE 114 mg/dL (74-106); POTASSIUM - SERUM 3.5 mmol/L (3.5-5.1); SODIUM 136 mmol/L (136-145); UREA NITROGEN 19 mg/dL (7-18); eGFR NON AFRICAN AMERICAN 85 mL/min (90-120)
[2018-02-24] MEDS ORDERED: MUCINEX600 MG PO (09:58)
[2018-02-24] MEDS ORDERED: TESSALON PERLE100 MG PO (09:58)
== END 2018-02-24 14:19 | disposition home health service (06) | DRG 336 ==
LOC: D.ER 09:06 → D.MS 14:02 → D.ICU 14:02
PROVIDERS: Emergency Medicine; Internal Medicine Nephrology; Surgery
PROC: 0WUF4JZ Supplement Abdominal Wall with Synthetic Substitute, Percutaneous Endoscopic Approach (ICD-10-PCS; principal; 2018-02-22 13:15)
PROC: 0DN84ZZ Release Small Intestine, Percutaneous Endoscopic Approach (ICD-10-PCS; 2018-02-22 13:15)
PROC: 05HC33Z Insertion of Infusion Device into Left Basilic Vein, Percutaneous Approach (ICD-10-PCS; 2018-02-23)
PROC: B54NZZA Ultrasonography of Left Upper Extremity Veins, Guidance (ICD-10-PCS; 2018-02-23)
DX: K43.0 Incisional hernia with obstruction, without gangrene (principal); F17.203 Nicotine dependence unspecified, with withdrawal; J44.9 Chronic obstructive pulmonary disease, unspecified; E87.6 Hypokalemia; I11.0 Hypertensive heart disease with heart failure; I50.9 Heart failure, unspecified